=== PATIENT | male | born 1975 | race Caucasian/White ===

== ENCOUNTER 2016-05-31 01:59 | Emergency (ER) | payer OTHER, MEDICAID ==
[~2016-05-31] VITALS: Ht 162.6 cm; Wt 94.8 kg
[~2016-05-31 01:59] MED LIST: ACID1TAB7 PO; CLIN300C93 PO; DIVA500T2 PO; DULA0.75 IM; EZET10TA3 PO; FLUO40CA9 PO; GABA600T2 PO; INSU100V13 SC; METF500T4 PO; NIAC250T17 PO; TEMA30CA6 PO
[2016-05-31 02:00] VITALS: BP 119/82
[2016-05-31] MEDS ORDERED: ANTIBIOTIC (02:17)
[2016-05-31] MEDS ORDERED: OXYcodone/APAP 10/325MG TABLET ONE (02:45)
[2016-05-31] MEDS ORDERED: KETOROLAC 30 MG/1 ML ONE (02:46)
[2016-05-31] MEDS ORDERED: OXYcodone/APAP 10/325MG TABLET PO ONE (03:00)
[2016-05-31] MEDS ORDERED: KETOROLAC 30 MG/1 ML IM ONE (03:00)
== END 2016-05-31 03:12 | disposition home or self-care (01) ==
LOC: ED 03:02
DX: S46.011A Strain of muscle(s) and tendon(s) of the rotator cuff of right shoulder, initial encounter (principal); M75.21 Bicipital tendinitis, right shoulder; E11.9 Type 2 diabetes mellitus without complications; I10 Essential (primary) hypertension; E78.00 Pure hypercholesterolemia, unspecified; Z90.89 Acquired absence of other organs; X58.XXXA Exposure to other specified factors, initial encounter; Y93.89 Activity, other specified; Y99.8 Other external cause status; Y92.89 Other specified places as the place of occurrence of the external cause
CPT/HCPCS: 73030; 96372; 99284; J1885